=== PATIENT | female | born 1985 | race Caucasian/White ===

== ENCOUNTER 2020-04-07 09:03 | Outpatient (REF) | payer OTHER, SELFPAY ==
[2020-04-07 11:08] LABS: MANUAL DIFF FLAG NO
[2020-04-07 11:21] LABS: Basophils Percent Auto 0.3 % (0-2); Eosinophils Absolute Auto 0.1 X10*3/uL (0.0-0.4); Eosinophils Percent Auto 1.2 % (0-4); Hemoglobin 15.2 g/dl (12.0-16.0); Imm Gran Abs Auto 0.03 X10*3/uL (0.00-0.03); Imm Gran Pct Auto 0.4 % (0.0-0.4); Lymphocytes Absolute Auto 1.8 X10*3/uL (1.2-4.9); Lymphocytes Percent Auto 23.8 % (20-40); Mean Corpuscular HGB Conc 33.8 g/dl (31.0-35.0); Mean Corpuscular Hemoglobin 33.3 pg (27.0-33.0); Mean Corpuscular Volume 98.7 fL (80-98); Monocytes Absolute Auto 0.6 X10*3/uL (0.1-1.2); Monocytes Percent Auto 7.6 % (2-11); Neutrophils Absolute Auto 5.1 X10*3/uL (2.0-8.3); Neutrophils Percent Auto 66.7 % (45-73); Platelet Count 291 X10*3/uL (160-400); Red Blood Count 4.56 X10*6/uL (4.20-5.50); White Blood Count 7.7 X10*3/uL (4.8-10.8)
[2020-04-07 11:43] LABS: Anion Gap 11 (12-20); Blood Urea Nitrogen 11 mg/dL (9-16); Calcium 8.6 mg/dL (8.4-10.2); Carbon Dioxide 27 mmol/L (22-29); Chloride 106 mmol/L (96-108); Estimated Glomerular Filt Rate > 60; Glucose Random 101 mg/dL (60-115); Potassium 4.6 mmol/l (3.3-5.1); Sodium 139 mmol/L (135-145)
[2020-04-07 12:07] LABS: TSH reflex Free T4 3.26 mIU/mL (0.32-4.0)
[2020-04-07 12:08] LABS: Estimated Average Glucose 97 mg/dL
[2020-04-08 07:46] LABS: LDL Cholesterol Direct 102 mg/dL (<100)
== END 2020-04-07 09:04 | disposition home or self-care (01) ==
LOC: HO.HMGCLDS 09:03
PROVIDERS: PCP Internal Medicine; Visit Provider Internal Medicine
DX: E66.01 Morbid (severe) obesity due to excess calories (principal); R03.0 Elevated blood-pressure reading, without diagnosis of hypertension; Z76.89 Persons encountering health services in other specified circumstances
CPT/HCPCS: 36415; 80048; 83036; 83721; 84443; 85025

== ENCOUNTER 2022-02-19 01:45 | Emergency (ER) | payer OTHER, SELFPAY ==
[2022-02-19 01:57] VITALS: PULSE 113; RESP 18; TEMP 36.1; O2SAT 96; BMI 35.5
[2022-02-19 02:14] LABS: MANUAL DIFF FLAG NO
[2022-02-19 02:15] LABS: Basophils Percent Auto 0.3 % (0-2); Eosinophils Absolute Auto 0.3 X10*3/uL (0.0-0.4); Eosinophils Percent Auto 3.4 % (0-4); Hematocrit 46.9 % (37.0-47.0); Hemoglobin 16.7 g/dl (12.0-16.0); Imm Gran Abs Auto 0.04 X10*3/uL (0.00-0.03); Imm Gran Pct Auto 0.4 % (0.0-0.4); Lymphocytes Absolute Auto 1.9 X10*3/uL (1.2-4.9); Lymphocytes Percent Auto 21.1 % (20-40); Mean Corpuscular HGB Conc 35.6 g/dl (31.0-35.0); Mean Corpuscular Hemoglobin 36.7 pg (27.0-33.0); Mean Corpuscular Volume 103.1 fL (80.0-98.0); Monocytes Absolute Auto 0.7 X10*3/uL (0.1-1.2); Monocytes Percent Auto 7.2 % (2-11); Neutrophils Absolute Auto 6.1 x10*3/uL (2.0-8.3); Neutrophils Percent Auto 67.6 % (45-73); Platelet Count 238 X10*3/uL (160-400); Red Blood Count 4.55 X10*6/uL (4.20-5.50); Red Cell Distribution Width 12.6 % (11.0-16.0)
--- NOTE | 2022-02-19 02:40 | PC.NURSE ---
Patient placed under a section 12 at this time. She is changed into proper section 12 attire and all belongings secured with security. 1:[address] and this RN provides sitter with a report. Patient's overheard telling patient they're going to try to section you. I won't let them take you. They want to send you to the fifth floor. Security called to speak with patient's and he storms out then attempts to gain entry again, before aggressively driving off in his car (per security reports after they called the police). Patient now seated in stretcher conversing with MD. Patient is calm, cooperative, and understanding as to why she was placed under a section 12.
--- NOTE | 2022-02-19 02:40 | ED.PSYCH ---
HPI - Psych General Chief Complaint: Psychiatric Symptoms Stated Complaint: lac on left arm Time Seen by Provider: 02/19/22 01:58 Source: patient Mode of arrival: ambulatory History of Present Illness HPI Narrative: 37-year-old female presents after an intentional laceration to her left forearm with a knife when she states she had a moment of weakness . She states that Sunday is the anniversary of her dad's passing and that she has recently found out that she has MS. Patient is now stating that she is very embarrassed about what she did. Related Data Home Medications Medication Instructions Recorded Confirmed norethindrone (contraceptive) 0.35 1 tab PO DAILY 02/19/22 02/19/22 mg tablet Allergies Allergy/AdvReac Type Severity Reaction Status Date / Time methylphenidate Allergy Intermediate unable to Verified 04/28/20 08:28 [From Ritalin] tolerate hydrochlorothiazide AdvReac Mild headache Verified 04/28/20 08:28 Review of Systems Review of Systems: Pertinent positives and negatives as stated in HPI 10 point review of systems is otherwise negative. PMFSH Past Medical History Source: nursing notes reviewed Medical History Elevated blood pressure reading Encounter to establish care Hypertension, essential Morbid obesity Tourette syndrome Surgical History No pertinent past surgical history Family History Family History Father No problems noted. Mother Breast cancer Diabetes mellitus Brother No problems noted. Social History Social History Alcohol intake: current Alcohol intake frequency: a few times a week Advance Directives: No Physical Exam Vital Signs: Vital Signs: Last Vital Signs Temp 97.0 F 02/19/22 01:57 Pulse 100 02/19/22 02:46 Resp 17 02/19/22 02:46 BP 136/58 L 02/19/22 02:46 Pulse Ox 100 02/19/22 02:46 O2 Del Method 02/19/22 02:46 BMI result Body Mass Index 35.5 VITAL SIGNS: Reviewed. GENERAL: Well developed, well nourished, in no acute distress. HEAD: Normocephalic/atraumatic EYES: PERRLA, EOMI EARS: Ext canals without abnormality OROPHARYNX: no oral lesions noted, posterior pharynx clear LUNGS: Normal breath sounds. No adventitious sounds or accessory muscle use. SpO2<100> CARDIOVASCULAR: Regular rate and rhythm without noted murmurs ABDOMEN: Soft, non-tender, non-distended with bowel sounds. MUSCULOSKELETAL: No tenderness, deformities, or effusions noted on gross inspection. EXTREMITIES: No cyanosis, clubbing or edema; LUE: There is an approximate 10 cm linear laceration to the left forearm with protrusion of subcutaneous tissue to include fat. SKIN: Inspection of the skin reveals no rashes NEUROLOGIC: Alert and oriented x 4. Strength and sensation to light touch were grossly intact x 4, cranial nerves 2-12 are grossly intact.. PSYCH: normal affect, tearful Course Course Course Narrative: 37-year-old female with history and clinical presentation consistent with first-time suicidal attempt and denies any history depression. Patient states that she regrets what she did. She will be getting a tetanus shot and receiving sutures for the laceration. She is on a one-to-one and the crisis team has been notified. After review of all investigations patient is medically cleared for evaluation by the crisis team. Reevaluation(s) Reevaluation #1: Patient placed in physician observation because the patient needed more time for evaluation by the crisis team. At the time observation was started the patient's vital signs were stable, patient is alert and oriented, neuro: Nonfocal, CV RRR, lungs clear Time: 05:30 [facility] - Psych Lab Data Result diagrams: 02/19/22 02:08 02/19/22 03:20 Labs: Lab Results 02/19/22 02/19/22 Range/Units 02:08 03:20 WBC 9.0 (4.8-10.8) X10*3/uL RBC 4.55 (4.20-5.50) X10*6/uL Hgb 16.7 H (12.0-16.0) g/dl Hct 46.9 (37.0-47.0) % MCV 103.1 H (80.0-98.0) fL MCH 36.7 H (27.0-33.0) pg MCHC 35.6 H (31.0-35.0) g/dl RDW 12.6 (11.0-16.0) % Plt Count 238 (160-400) X10*3/uL MPV 9.0 L (9.4-12.3) fL Immature Gran % (Auto) 0.4 (0.0-0.4) % Neut % (Auto) 67.6 (45-73) % Lymph % (Auto) 21.1 (20-40) % Branch % (Auto) 7.2 (2-11) % Eos % (Auto) 3.4 (0-4) % Baso % (Auto) 0.3 (0-2) % Lymph # (Auto) 1.9 (1.2-4.9) X10*3/uL Branch # (Auto) 0.7 (0.1-1.2) X10*3/uL Eos # (Auto) 0.3 (0.0-0.4) X10*3/uL Baso # (Auto) 0.0 (0.0-0.2) X10*3/uL Abs Immat Gran (auto) 0.04 H (0.00-0.03) X10*3/uL Absolute Neuts (auto) 6.1 (2.0-8.3) x10*3/uL Absolute Nucleated RBC 0.000 (0.0-0.012) X10*3/uL Nucleated RBC % (auto) 0.0 (0.0-0.2) /100WBC Sodium 143 (135-145) mmol/L Potassium 3.6 (3.3-5.1) mmol/L Chloride 106 (96-108) mmol/L Carbon Dioxide 24 (22-29) mmol/L Anion Gap 17 (12-20) BUN 7 L (9-16) mg/dL Creatinine 1.04 (0.5-1.4) mg/dL Estim Creat Clear Calc 89.1 Estimated GFR 60 Random Glucose 103 (60-115) mg/dL Calcium 9.2 D (8.4-10.2) mg/dL Total Bilirubin 0.8 (0.0-1.0) mg/dL AST 87 H (5-31) U/L ALT 103 H (0-31) U/L Alkaline Phosphatase 75 (39-117) U/L Total Protein 7.4 (6.5-8.0) g/dL Albumin 4.1 (3.5-5.0) g/dL Salicylates < 5.0 L (15-30) mg/dL Acetaminophen < 1 (<30) mcg/mL Ethyl Alcohol 141 mg/dL Procedures Laceration Laceration 1: Site: upper extremity Side (If applicable): left Size (cm): 12 Description: linear Depth: simple, single layer Local Anesthetic: lidocaine 1% Amount of anesthesia used (mL): 10 Pre-repair: wound explored, irrigated extensively and deep structures intact Skin layer closed with: nylon Size (cm): 4-0 Number of sutures: 15 Technique: simple, interrupted and horizontal mattress (4/15) Subcutaneous layer closed with: vicryl Size: 5-0 Number of sutures: 3 Discharge Plan Discharge Clinical Impression: Suicide attempt, Depression, Arm laceration Patient Disposition: Still a Patient Prescriptions: No Action norethindrone (contraceptive) 0.35 mg tablet 1 tab PO DAILY
[2022-02-19 02:46] VITALS: BP 136/58; PULSE 100; RESP 17; O2SAT 100
[2022-02-19 03:56] LABS: Acetaminophen LAB < 1 mcg/mL (<30); Alanine Aminotransferase 103 U/L (0-31); Albumin Level 4.1 g/dL (3.5-5.0); Alkaline Phosphatase 75 U/L (39-117); Anion Gap 17 (12-20); Aspartate Amino Transferase 87 U/L (5-31); Bilirubin Total 0.8 mg/dL (0.0-1.0); Blood Urea Nitrogen 7 mg/dL (9-16); Calcium 9.2 mg/dL (8.4-10.2); Carbon Dioxide 24 mmol/L (22-29); Chloride 106 mmol/L (96-108); Creatinine Clr Calc Pharmacy 89.1; Estimated Glomerular Filt Rate 60; Ethanol 141 mg/dL; Glucose Random 103 mg/dL (60-115); Potassium 3.6 mmol/L (3.3-5.1); Salicylate < 5.0 mg/dL (15-30); Sodium 143 mmol/L (135-145); Total Protein 7.4 g/dL (6.5-8.0)
[2022-02-19] MEDS: Diphth,Pertus(ACell),Tet Adult 0.5 ML SYRINGE IM (04:14)
[2022-02-19] MEDS: Lidocaine HCl 1 % MPF 5 ML VIAL 10 ML SUBCUT (04:36)
[2022-02-19 05:51] LABS: COVID-19 Test Negative (Negative); IDNOW Serial# 16C4AD1C
--- NOTE | 2022-02-19 05:52 | PC.NURSE ---
Patient was transferred from main ED per provider's order for possible suicidal attempt by cutting her left forearm, although patient refused but provider sectioned patient, patient has laceration on her left forearm/sutured per report/covered with dressing, patient alert and oriented x 4, [facility] referral completed/confirmed/pending ETA, med rec completed/pending provider's approval, behavior non concerning, will continue to monitor.
[2022-02-19 09:11] VITALS: BP 171/95; PULSE 105; RESP 16; TEMP 36.8; O2SAT 96
--- NOTE | 2022-02-19 09:35 | PC.NURSE ---
pt calm and cooperative at this time. does not know why she cut herself last night; had alot of negative thoughts in her mind, she denies any self harm in the past and is not suicidal at this time. she is receiving PT for her new diagnosis of MS but she does have daily discomfort in both legs.
[2022-02-19] MEDS: Ibuprofen 400 MG TABLET PO (10:55)
[2022-02-19 12:23] LABS: Appearance Urine Cloudy; Color Urine Dark Yellow; Glucose Urine UA Negative (Negative); Leukocyte Esterase Urine Large (3+) (Negative); Nitrite Urine Negative (Negative); Specific Gravity - Urine >= 1.030 (1.005-1.025); UMIC TRIGGER UACC YES; Urine Blood Moderate (2+) (Negative); Urine Ketones 15 mg/dL (Negative); Urine Protein 30 (1+) mg/dL (Neg-Trace)
[2022-02-19 12:27] LABS: UPreg QC Valid YES; Urine Pregnancy NEGATIVE (NEGATIVE)
[2022-02-19 12:37] LABS: Amphetamine Screen Urine Not Detected (Not Detect); Barbiturates, Urine Not Detected (Not Detect); Benzodiazepines Screen Urine Not Detected (Not Detect); Cannabinoid Screen Urine POSITIVE (Not Detect); Cocaine Screen Urine Not Detected (Not Detect); Fentanyl, urine Not Detected (Not Detect); Opiate Screen Urine Not Detected (Not Detect); Phencyclidine Screen Urine Not Detected (Not Detect)
[2022-02-19 12:47] LABS: Bacteria Urine 4+ (None Seen); UACC Culture Trigger YES; WBC Urine >50 /HPF (0-5)
== END 2022-02-19 14:30 | disposition home or self-care (01) ==
PROVIDERS: Emergency Provider Student in an Organized Health Care Education/Training Program
DX: S51.812A Laceration without foreign body of left forearm, initial encounter (principal); S50.812A Abrasion of left forearm, initial encounter; X78.1XXA Intentional self-harm by knife, initial encounter; Y93.9 Activity, unspecified; Y92.9 Unspecified place or not applicable; Y99.9 Unspecified external cause status; Z79.899 Other long term (current) drug therapy; Z20.822 Contact with and (suspected) exposure to COVID-19
CPT/HCPCS: 12004; 36415; 80053; 80143; 80179; 80307; 81001; 81025; 82077; 85025; 87086; 87635; 90471; 90715; 99285

== ENCOUNTER 2022-02-28 14:50 | Emergency (ER) | payer OTHER, SELFPAY ==
--- NOTE | 2022-02-28 14:54 | ED.GENADULT ---
HPI - General Adult General Stated complaint: suture removal Time Seen by Provider: 02/28/22 14:54 Source: patient Mode of arrival: ambulatory Limitations: no limitations History of Present Illness HPI narrative: 37-year-old female presents for suture removal to the left forearm, patient had 15 sutures placed February 19, patient was updated on her tetanus shot. Denies any signs of infection. Denies numbness, tingling. No other concerns at this time. Denies fevers and chills. Related Data Home Medications Medication Instructions Recorded Confirmed norethindrone (contraceptive) 0.35 1 tab PO DAILY 02/19/22 02/19/22 mg tablet Allergies Allergy/AdvReac Type Severity Reaction Status Date / Time methylphenidate Allergy Intermediate unable to Verified 04/28/20 08:28 [From Ritalin] tolerate hydrochlorothiazide AdvReac Mild headache Verified 04/28/20 08:28 Review of Systems Review of Systems: Constitutional : No Fever, No Chills, Cardiovascular : No Chest Pain, No SOB Respiratory : No Dyspnea Gastrointestinal : No abdominal pain Musculoskeletal : No Joint Swelling Skin : No rash, positive skin laceration with sutures in place Neuro : No Weakness, No Numbness Psych : No SI/HI Yes all other systems are reviewed and are negative [facility] Past Medical History Attestation statement: The following information was validated with the patient. Source: old records reviewed and nursing notes reviewed Medical History Elevated blood pressure reading Encounter to establish care Hypertension, essential Morbid obesity Tourette syndrome Surgical History No pertinent past surgical history Family History Family History Father No problems noted. Mother Breast cancer Diabetes mellitus Brother No problems noted. Social History Social History Alcohol intake: current Alcohol intake frequency: a few times a week Physical Exam ED Appearance: Alert.? Oriented X3.? No acute distress.? Head: Normocephalic, atraumatic, no step-offs or deformities Eyes: Pupils equal, round and reactive to light.? CVS: Normal heart rate and rhythm.? Pulses normal.? Respiratory: No respiratory distress.? Breath sounds normal.? Abdomen: Soft and nontender.? Skin: Skin warm and dry.? Normal skin color.? Normal skin turgor.?+10 cm linear laceration to the left forearm with [address] Extremities: No lower extremity edema.? No calf ttp. 5/5 strength to bilateral upper and lower extremities Neuro: Oriented X 3.? No motor deficit.? No sensory deficit. CN 2-12 intact Course Reevaluation(s) Reevaluation #1: Suture successfully removed. Advised patient to follow-up with PCP and return with new or worsening symptoms. Comfortable discharge Time: 14:57 Medical Decision Making MDM Narrative Medical decision making narrative: 1456 37-year-old female presents for suture removal, currently as 15 sutures to her forearm. Physical examination with 15 intact sutures to left forearm Plan at this time is suture removal Medical Records Medical records reviewed: Yes I reviewed the patient's medical records. Lab Data Lab results reviewed: Yes I reviewed the patient's lab results. Critical Care Time Critical Care Time Critical Care Time: No Discharge Plan Discharge Clinical Impression: Encounter for removal of sutures Patient Disposition: Home, Self-Care Instructions: Stitches Removal (ED) Additional Instructions: Take your medications as prescribed. If you were prescribed antibiotics today, it is important that you take your medication to their entirety, do not skip any doses, do not finish them early. Follow-up with your primary care provider this week. Return to the emergency department with new or worsening symptoms. Such as fevers, chills, chest pain, shortness of breath, nausea, vomiting, dizziness, headache, vision changes, lethargy In case of emergency call 911 Prescriptions: No Action norethindrone (contraceptive) 0.35 mg tablet 1 tab PO DAILY Referrals: Adilia Stanton MD [Primary Care Provider] - 2 days
== END 2022-02-28 15:26 | disposition left against medical advice (07) ==
PROVIDERS: Emergency Provider Emergency Medicine; PCP Internal Medicine
DX: Z48.02 Encounter for removal of sutures (principal)

== ENCOUNTER 2024-09-29 15:49 | Outpatient (AMB) | payer OTHER, SELFPAY ==
--- NOTE | 2024-09-29 15:52 | MHC.PC.OV ---
Vital Signs 09/29/24 15:55 Height 5 ft 6 in Weight 424 lb 9.765 oz BMI 68.5 BP 140/100 H Blood Pressure Location Lt brachial Position Sitting Pulse 100 Pulse Source Pulse Oximeter Temp 96.9 F Temp Source Temporal Artery Scan Pulse Oximetry (%) 94 Oxygen Delivery Method Room Air Intake Visit Reasons: Establish care Intake Note: Patient is a new patient here to establish care for HTN, Acute and Chronic Respiratory failure w/out hypoxia, Heart failure, Foot drop (right foot), Solitary pulmonary nodule, GERD, other idiopathic peripheral neuropathy, MELL, Tourette's disorder, Obesity . Transferring care from [facility]. Medical records Have been requested and have not received. Inner Tube Inserter Required: No Bak[employer] Internship: Not Required per policy Accompanied by: Self / Same As Patient Allergies methylphenidate [From Ritalin] Allergy (Intermediate, Verified 09/29/24 16:18) unable to tolerate venlafaxine [From Effexor] Allergy (Intermediate, Verified 09/29/24 16:18) Unknown hydrochlorothiazide Adverse Reaction (Mild, Verified 09/29/24 16:18) headache Medication List - Last Reconciled 09/29/24 by Marleny De La Garza PA-C acetaminophen ER (Tylenol 8 Hour) 650 mg PO Q8H PRN carvedilol 25 mg PO BID folic acid 1 mg PO DAILY furosemide 20 mg PO BID 30 days gabapentin 100 mg PO BID ipratropium-albuterol 0.5 mg-3 mg(2.5 mg base)/3 mL 3 mL inhalation Q6-8H PRN lidocaine 5% 1 patch topical DAILY pantoprazole 40 mg PO DAILY Saccharomyces boulardii (Florastor) 250 mg PO BID Tobacco use date assessed: 09/29/24 Dental Screening Dental Screen Date: 09/29/24 Did you have a dental visit in the last 12 months?: No Did you have a dental problem in the last 6 months where you did not have access to dental care?: No Was dental information given to patient?: Patient declined HPI Establish care HPI Details 39-year-old female coming to the office for the 1st time. Presenting with a history of pneumonia, heart failure, and bilateral foot drop. She required intubation and a medically induced coma last year due to pneumonia. Upon awakening, she developed persistent bilateral foot drop, described as a constant sensation of extremities being asleep, affecting both feet and impacting balance. Initially hospitalized for recurring pneumonia and respiratory rehabilitation, the patient required oxygen therapy and cardiac monitoring. She was discharged to [facility] where she completed respiratory rehab. She has been out of her prescribed medications for 2 weeks. The patient has been experiencing ongoing episodes of swelling due to the discontinuation of diuretics. She has seen an increase in alcohol consumption and anxiety. Although she has been engaged in physical therapy exercises, these issues continue to limit functional capacity requiring wheelchair and walker along with double assist. [facility] Medical History Hypertension, essential Tourette syndrome Encounter to establish care Morbid obesity Elevated blood pressure reading Surgical History No pertinent past surgical history Family History Father Substance use disorder Mother Breast cancer Diabetes mellitus Brother No problems noted. Social History Housing: Apartment Alcohol intake: current Alcohol intake frequency: a few times a week Patient Tobacco Use Status: Never used Tobacco e-Cigarette/Vaping Use: Currently Using Second Hand Smoke Exposure: No service: No Current occupational status: unemployed Cognitive needs: Yes (Wheelchair, walker) Hearing needs: No Vision needs: Yes (Glasses) Questionnaire PHQ-9 Over the last 2 weeks, how often have you been bothered by any of the following problems? 1. Little interest or pleasure in doing things: not at all 2. Feeling down, depressed, or hopeless: several days 3. Trouble falling or staying asleep, or sleeping too much: several days 4. Feeling tired or having little energy: several days 5. Poor appetite or overeating: more than half the days 6. Feeling bad about yourself - or that you are a failure or have let yourself or your family down: more than half the days 7. Trouble concentrating on things, such as reading the newspaper or watching television: not at all 8. Moving or speaking so slowly that other people could have noticed. Or the opposite - being so fidgety or restless that you have been moving around a lot more than usual: not at all 9. Thoughts that you would be better off or of hurting yourself in some way: not at all Total score: 7 Depression Screening Interpretation: Positive Depression Screening Follow-up: New Medication prescribed Depression Screening Done: Yes Source: Developed by Drs. Pablo Quinteros, Marcela Lentz, Solomon Mack and colleagues, with an educational allyson from [employer]. Thrive Questionnaire Date Thrive assessed: 09/29/24 I am a: Patient What is your living situation today?: I have a steady place to live Within the past 12 months, did the food you bought not last and you didn't have the money to get more?: Never true Within the past 12 months, did you worry whether your food would run out before you got money to buy more?: Never true Do you have trouble paying for medicines?: Yes Do you have trouble getting transportation to medical appointments?: Yes Do you have trouble paying your heating and electricity bill?: No Do you have trouble taking care of your child, family member or friend?: No Do you have trouble with day-to-day activities such as bathing, preparing meals, shopping, managing finances, etc.?: Yes Are you currently unemployed and looking for a job?: No Are you interested in more education?: No Please select the resources that you would like help with: Housing/Skilled Nursing, Paying for medicine, Transportation and Daily support Currently or been in a relationship where the following occur: No concerns reported THRIVE Score: 1 AUDIT C Alcohol Use Questionnaire (AUDIT-C) 1. How often do you have a drink containing alcohol?: 4 or more times a week 2. How many drinks containing alcohol do you have on a typical day when you are drinking?: 3 or 4 3. How often do you have six or more drinks on one occasion?: Monthly Total Score: 7 Score Reviewed/Action Taken: Yes JOSE RAMON-7 AMB Questionnaire JOSE RAMON-7 Date JOSE RAMON - 7 assessed: 09/29/24 Feeling nervous, anxious, or on edge: 2 = More than half the days Not being able to stop or control worryin = More than half the days Worrying too much about different things: 2 = More than half the days Trouble relaxin = More than half the days Being so restless that it is hard to sit still: 2 = More than half the days Becoming easily annoyed or irritable: 1 = Several days Feeling afraid as if something awful might happen: 1 = Several days Total JOSE RAMON-7 score (0-4 normal; 5-9 mild; 10-14 moderate; 15-21 severe): 12 Source: Developed by Drs. Pablo Quinteros, Marcela Lentz, Solomon Mack and colleagues, with an educational allyson from [employer]. JOSE RAMON-7 Assessment Billing JOSE RAMON-7 Assessment Tool: JOSE RAMON-7 Assessment 70029 Review of Systems Const Denies body aches, Denies chills, Denies fever(s), Denies headache(s) and Denies poor appetite Eyes Reports no additional complaints ENT Denies dysphagia, Denies dizziness, Denies headache(s) and Denies odynophagia Card Denies chest pain, Denies lightheadedness, Denies dyspnea and Reports dyspnea on exertion Resp Denies cough, Denies dyspnea and Reports dyspnea on exertion GI Denies abdominal pain, Denies dysphagia, Denies nausea, Denies odynophagia and Denies vomiting Reports no additional complaints Musc Reports abnormal gait and Reports tingling (hugo feet R > L) Skin/Breast Reports system reviewed and no additional complaints, except as documented Neuro Reports abnormal gait, Denies dizziness, Denies headache(s) and Reports tingling (hugo feet R > L) Psych Reports no additional complaints Physical exam (Primary Care) Vital Signs: Last Vital Signs Temp 96.9 F 09/29/24 15:55 Pulse 100 09/29/24 15:55 BP 140/100 H 09/29/24 15:55 Pulse Ox 94 09/29/24 15:55 Oxygen Delivery Method Room Air 09/29/24 15:55 BMI result Body Mass Index 68.5 Tobacco/Smoking Status: Tobacco use Status Tobacco use date assessed 09/29/24 09/29/24 15:55 Patient Tobacco Use Status Never used Tobacco 09/29/24 16:09 e-Cigarette/Vaping Use Currently Using 09/29/24 16:13 PHQ-9: PHQ-9 Score PHQ-9: Total score 7 09/30/24 08:02 Depression Screening Interpretation: Positive Depression Screening Follow-up: New Medication prescribed Thrive Assessment: Date of Thrive Assessment Date Thrive assessed 09/29/24 09/29/24 15:55 Currently or been in a relationship where the following occur: No concerns reported Const General: cooperative, healthy appearing, comfortable and no acute distress Orientation/consciousness: patient oriented x3 HENMT Head: Yes normocephalic Ears: hearing grossly normal bilaterally General nose exam: Normal external nose present Eyes General: appearance normal, both eyes and all related structures Conjunctivae: conjunctivae normal Neck Neck: Yes full ROM and Yes no lymphadenopathy Resp Effort & Inspection: normal respiratory effort Auscultation: clear to auscultation bilaterally, no crackles, no rales, no rhonchi and no wheezes Cardio Rate: regular rate Rhythm: regular rhythm Skin General skin exam: no rashes or lesions noted Neuro General: patient oriented x3 Gait exam (Neuro): Normal gait present Extrem Other: No calf tenderness, redness or warmth General: Yes normal to inspection, Yes full ROM and Yes edema (hugo 1+ ) Psych Affect: normal affect Attitude: cooperative Insight: Good insight present (Psych) Judgement: Good judgement present (Psych) Coding Level of Care Code New Pt Level 4 (47063) Diagnoses Hypertension, essential I10 Tourette syndrome F95.2 Obstructive sleep apnea G47.33 Solitary pulmonary nodule R91.1 GERD (gastroesophageal reflux disease) K21.9 Heart failure I50.9 Respiratory failure J96.90 Foot drop M21.379 Anxiety F41.9 Depression F32.A Morbid obesity with BMI of 60.0-69.9, adult E66.01; Z68.44 Neuropathy G62.9 Alcohol use disorder F10.90 Additional Codes JOSE RAMON-7 Assessment Billing - JOSE RAMON-7 Assessment Tool: JOSE RAMON-7 Assessment 42598 ([id number]) Assessment & Plan Assessment & Plan (1) Hypertension, essential: Code(s): I10 - Essential (primary) hypertension Category: Medical Plan: Continue on current blood pressure medication. Avoid salt intake and encourage healthy diet and regular exercise. Blood pressure not well controlled today patient has been without her medications for over 1 week and to restart on blood pressure medications and follow up in 4 weeks. (2) Tourette syndrome: Code(s): F95.2 - Tourette's disorder Category: Medical Plan: Patient was previously referred to Urology but did not have appointment. Referral was placed today. (3) Obstructive sleep apnea: Comment: BiPAP Code(s): G47.33 - Obstructive sleep apnea (adult) (pediatric) Category: Medical Plan: Patient has been using BiPAP since discharge from the hospital and finds this beneficial. Referral was placed to sleep medicine today. (4) Solitary pulmonary nodule: Code(s): R91.1 - Solitary pulmonary nodule Category: Medical Plan: Patient was diagnosis solitary pulmonary nodule while admitted at the hospital. Awaiting hospital records at this time to determine if further image or follow up as needed. Patient was not informed of pulmonary nodule at the time of her admission. Can consider referral to pulmonology (5) GERD (gastroesophageal reflux disease): Code(s): K21.9 - Gastro-esophageal reflux disease without esophagitis Category: Medical Plan: Avoid trigger foods such as citrus, tomato products, soda, caffeine, spicy foods and other foods that may be irritating to your stomach. Avoid laying flat 3-4 hours after eating and elevate the head of the bed 30 degrees to prevent acid from moving into the esophagus. Continue on pantoprazole (6) Heart failure: Code(s): I50.9 - Heart failure, unspecified Category: Medical Plan: Patient was diagnosed with heart failure while admitted. Echocardiogram was obtained while admitted. Patient does have increased fluid retention she has been out of her Lasix for over 1 week. Patient is however otherwise asymptomatic and denies any shortness of breath or orthopnea. Plan to obtain BNP and referral was placed to cardiology today. (7) Respiratory failure: Code(s): J96.90 - Respiratory failure, unspecified, unspecified whether with hypoxia or hypercapnia Category: Medical Plan: Patient was diagnosed with respiratory failure requiring oxygen while admitted for treatment of pneumonia. At this time patient is not requiring oxygen and feels her respiratory status has improved since discharge. Can consider referral to pulmonology if this changes. (8) Foot drop: Comment: right Code(s): M21.379 - Foot drop, unspecified foot Category: Medical Plan: Patient having footdrop s/p medical induced coma. Plan to obtain neurology consult today. She is also evaluated while in the hospital and plan to obtain these records. Patient is currently using walker and wheelchair for mobility and requires it to assist for transfers. (9) Anxiety: Code(s): F41.9 - Anxiety disorder, unspecified Category: Medical Plan: Patient having worsening anxiety and depression since discharge from the hospital. It seems most of her anxiety and depression is stemming from her current medical conditions. I can place a referral for therapy and patient is desiring medical management. Plan to start on Zoloft 25 mg daily and follow up in 4 weeks. Discussed side effects of this medication advised patient to reach out if she develops any symptoms. (10) Depression: Code(s): F32.A - Depression, unspecified Category: Medical Plan: See above (11) Morbid obesity with BMI of 60.0-69.9, adult: Code(s): E66.01 - Morbid (severe) obesity due to excess calories; Z68.44 - Body mass index [BMI] 60.0-69.9, adult Category: Medical Plan: Healthy diet and regular exercise is encouraged. Patient has limited mobility due to underlying neurological conditions and has issues with motivation due to depression. Plan to focus on other comorbidities at this time but patient is encouraged to activity as tolerated. (12) Neuropathy: Code(s): G62.9 - Polyneuropathy, unspecified Category: Medical Plan: Patient complaining of neuropathic pain she is currently on gabapentin and finds this beneficial. She has been without the gabapentin for over 1 week and states symptoms have been worsening. Referral was also placed to neurology today for footdrop this may also be addressed. (13) Alcohol use disorder: Code(s): F10.90 - Alcohol use, unspecified, uncomplicated Category: Medical Plan: Patient encouraged to abstain from the use of alcohol especially while using her antidepressant. Referral was placed to [facility] today as well. Plan This note was constructed using voice recognition software. While every effort has been made to ensure accuracy and wheel alignment technician, still areas may have been included sometimes these areas may affect the content or meeting of the given symptoms. Total time spent caring for the patient today was 30 minutes. This includes time spent before the visit reviewing the chart, time spent during the visit, and time spent after the visit and documentation. Patient was informed and verbally consented to the use of an ambient scribe for clinic note documentation during this visit. Orders: Orders Comprehensive Met. Panel 09/29/24 Z00.00 - Encounter for general adult medical examination without abnormal findings Complete Blood Count Auto Diff 09/29/24 Z00.00 - Encounter for general adult medical examination without abnormal findings Lipid Panel 09/29/24 Z13.220 - Encounter for screening for lipoid disorders Vitamin B12 and Folate 09/29/24 Z00.00 - Encounter for general adult medical examination without abnormal findings TSH reflex Free T4 09/29/24 Z00.00 - Encounter for general adult medical examination without abnormal findings Free T4 (Free Thyroxine) 09/29/24 Z00.00 - Encounter for general adult medical examination without abnormal findings Vitamin D 25-OH Total 09/29/24 Z00.00 - Encounter for general adult medical examination without abnormal findings B Type Natriuretic Peptide 09/29/24 I50.9 - Heart failure, unspecified Referrals Cardiology Referral I50.9 - Heart failure, unspecified Addiction Medicine Referral F10.90 - Alcohol use, unspecified, uncomplicated Counseling Referral F10.90 - Alcohol use, unspecified, uncomplicated, F32.A - Depression, unspecified, F41.9 - Anxiety disorder, unspecified Neurology Referral F95.2 - Tourette's disorder, G47.33 - Obstructive sleep apnea (adult) (pediatric), G62.9 - Polyneuropathy, unspecified, M21.379 - Foot drop, unspecified foot Medications: New furosemide 20 mg PO BID 30 days 60 tabs 1RF Saccharomyces boulardii (Florastor) 250 mg PO BID 60 caps 0RF folic acid 1 mg PO DAILY 90 tabs 0RF gabapentin 100 mg PO BID 60 caps 1RF carvedilol must administer with a meal/food 25 mg PO BID 60 tabs 2RF acetaminophen ER (Tylenol 8 Hour) 650 mg PO Q8H PRN 30 tabs 0RF pain ipratropium-albuterol 0.5 mg-3 mg(2.5 mg base)/3 mL 3 mL inhalation Q6-8H PRN 90 mL 0RF wheezing lidocaine 5% leave on most painful area for up to 12 hrs 1 patch topical DAILY 15 ea 0RF pantoprazole 40 mg PO DAILY 90 tabs 0RF sertraline 25 mg PO DAILY 30 tabs 1RF
--- OUTSIDE RECORDS SUMMARY | 2024-09-29 15:53 | XMS_ITS | Clinical Summary ---
Author Organization [facility] it Address [address] [place] [address] Care Team Providers Care Vp Outcomes Name Role Phone Unavailable Primary Care Provider Unavailabl e Social History Tobacco Use Types Packs/Day Years Used Date Smoking Tobacco: Never Assessed Comments Unknown Sex and Gender Information Value Date Recorded Sex Assigned at Not on file Legal Sex Female 2:40 PM EST Gender Identity Not on file Sexual Orientation Not on file Plan of Treatment Health Maintenance Due Date Last Done Comments DTaP,Tdap,and Td Vaccines (1 - Tdap) 2005 Hepatitis B Vaccines (1 of 3 - 19+ 3-dose series) 2005 Cervical Cancer Screening: P ap Smear 2007 COVID-19 Vaccine (2023-2 5 season) 2024 Influenza Vaccine (Season Ended) 2025 HIB Vaccines Aged Out No longer eligi ble based on patient's age to complete this topic HPV Vaccines Aged Out No longer eligi ble based on patient's age to complete this topic Hepatitis A Vaccines Aged Out No long er eligible based on patient's age to complete this topic IPV Vaccines Aged Out No longer eligi ble based on patient's age to complete this topic MMR Vaccines Aged Out No longer eligi ble based on patient's age to complete this topic Meningococcal ACWY Vaccine Aged Out N o longer eligible based on patient's age to complete this topic Meningococcal B Vaccine Aged Out No l onger eligible based on patient's age to complete this topic Pneumococcal Vaccine: Pediat rics (0 to 5 Years) and At-Risk Patients (6 to 64 Years) Aged Out No longer eligible b ased on patient's age to complete this topic RSV Immunization Patients Un mario 20 months Aged Out No longer eligible b ased on patient's age to complete this topic Varicella Vaccines Aged Out No longer eligible based on patient's age to complete this topic
[2024-09-29 15:55] VITALS: BP 140/100; PULSE 100; TEMP 36.1; O2SAT 94; BMI 68.5
== END 2024-09-29 17:22 | disposition home or self-care (01) ==
LOC: HO.HMCH 15:50
DX: I11.0 Hypertensive heart disease with heart failure (principal); I50.9 Heart failure, unspecified; E66.01 Morbid (severe) obesity due to excess calories; Z68.44 Body mass index [BMI] 60.0-69.9, adult; J96.90 Respiratory failure, unspecified, unspecified whether with hypoxia or hypercapnia; F95.2 Tourette's disorder; G47.33 Obstructive sleep apnea (adult) (pediatric); R91.1 Solitary pulmonary nodule; K21.9 Gastro-esophageal reflux disease without esophagitis; M21.379 Foot drop, unspecified foot; F41.9 Anxiety disorder, unspecified; F32.A Depression, unspecified; G62.9 Polyneuropathy, unspecified; F10.90 Alcohol use, unspecified, uncomplicated

== ENCOUNTER → 2024-09-29 15:49 | Outpatient (BNVA) | payer OTHER, SELFPAY | DX: I11.0 Hypertensive heart disease with heart failure (principal); J96.20 Acute and chronic respiratory failure, unspecified whether with hypoxia or hypercapnia; I50.9 Heart failure, unspecified; M21.371 Foot drop, right foot; M21.372 Foot drop, left foot; R91.1 Solitary pulmonary nodule; K21.9 Gastro-esophageal reflux disease without esophagitis; G60.9 Hereditary and idiopathic neuropathy, unspecified; G47.33 Obstructive sleep apnea (adult) (pediatric); F95.2 Tourette's disorder; E66.01 Morbid (severe) obesity due to excess calories; F41.9 Anxiety disorder, unspecified; F32.A Depression, unspecified; F10.90 Alcohol use, unspecified, uncomplicated; Z68.44 Body mass index [BMI] 60.0-69.9, adult | CPT/HCPCS: 96127; 99202 ==

== ENCOUNTER 2024-11-10 10:57 | Outpatient (AMB) | payer OTHER, SELFPAY ==
--- NOTE | 2024-11-10 10:58 | MHC.PC.OV ---
Intake Visit Reasons: f/u HTN and depression Clearance Center Manager Required: No Metal Handler: Not Required per policy Accompanied by: Self / Same As Patient Allergies methylphenidate (From Ritalin) Allergy (Intermediate, Verified 11/10/24 10:59) unable to tolerate venlafaxine (From Effexor) Allergy (Intermediate, Verified 11/10/24 10:59) Unknown hydrochlorothiazide Adverse Reaction (Mild, Verified 11/10/24 10:59) headache Tobacco use date assessed: 09/29/24 Dental Screening Dental Screen Date: 09/29/24 HPI f/u HTN and depression HPI Details 39-year-old female with past medical history of morbid obesity, Tourette syndrome, hypertension, obstructive sleep apnea, GERD, heart failure, respiratory failure, depression, anxiety, alcohol use disorder and asthma last seen 09/2024 presenting via telehealth for follow up. Presenting with a head cold which has resolved over the last several days. She does continue to have sneezing and occasional head congestion but respiratory symptoms have largely resolved. Reports improvement in depression symptoms with sertraline, but anxiety persists. Reduced alcohol consumption from five days a week to once or twice a week. Experiences nightmares, possibly related to alcohol cessation, not sertraline. Referred to an addiction medicine clinic but did not attend as she managed to reduce alcohol intake independently. Has hypertension and has not been monitoring blood pressure at home. Back on Lasix, which has reduced peripheral edema. [facility] Medical History Hypertension, essential Tourette syndrome Encounter to establish care Morbid obesity Elevated blood pressure reading Surgical History No pertinent past surgical history Family History Father Substance use disorder Mother Breast cancer Diabetes mellitus Brother No problems noted. Social History (Updated 11/10/24 @ 11:02 by ALFREDO Costa) Housing: Apartment Alcohol intake: current Alcohol intake frequency: a few times a week Patient Tobacco Use Status: Never used Tobacco e-Cigarette/Vaping Use: Former Use Second Hand Smoke Exposure: No service: No Current occupational status: unemployed Cognitive needs: Yes (Wheelchair, walker) Hearing needs: No Vision needs: Yes (Glasses) Questionnaire Thrive Questionnaire Date Thrive assessed: 09/29/24 I am a: Patient What is your living situation today?: I have a steady place to live Within the past 12 months, did the food you bought not last and you didn't have the money to get more?: Never true Within the past 12 months, did you worry whether your food would run out before you got money to buy more?: Never true Do you have trouble paying for medicines?: Yes Do you have trouble getting transportation to medical appointments?: Yes Do you have trouble paying your heating and electricity bill?: No Do you have trouble taking care of your child, family member or friend?: No Do you have trouble with day-to-day activities such as bathing, preparing meals, shopping, managing finances, etc.?: Yes Are you currently unemployed and looking for a job?: No Are you interested in more education?: No Currently or been in a relationship where the following occur: No concerns reported THRIVE Score: 1 JOSE RAMON-7 AMB Questionnaire JOSE RAMON-7 Date JOSE RAMON - 7 assessed: 11/10/24 Feeling nervous, anxious, or on edge: 2 = More than half the days Not being able to stop or control worryin = Several days Worrying too much about different things: 1 = Several days Trouble relaxin = Several days Being so restless that it is hard to sit still: 0 = Not at all Becoming easily annoyed or irritable: 0 = Not at all Feeling afraid as if something awful might happen: 0 = Not at all Total JOSE RAMON-7 score (0-4 normal; 5-9 mild; 10-14 moderate; 15-21 severe): 5 Source: Developed by Drs. Pablo Quinteros, Marcela Lentz, Solomon Mack and colleagues, with an educational allyson from [employer]. Review of Systems Const Denies body aches, Denies chills, Denies fever(s), Denies headache(s) and Denies poor appetite Eyes Reports no additional complaints ENT Denies dizziness and Denies headache(s) Card Denies chest pain and Denies dyspnea Resp Denies dyspnea GI Denies abdominal pain, Denies nausea and Denies vomiting Skin/Breast Reports system reviewed and no additional complaints, except as documented Neuro Denies dizziness and Denies headache(s) Psych Reports no additional complaints Physical exam (Primary Care) Vital Signs: vital signs and physical exam not performed due to nature of telehealth visit. Tobacco/Smoking Status: Tobacco use Status Tobacco use date assessed 09/29/24 11/10/24 11:01 Patient Tobacco Use Status Never used Tobacco 11/10/24 11:02 e-Cigarette/Vaping Use Former Use 11/10/24 11:03 Thrive Assessment: Date of Thrive Assessment Date Thrive assessed 09/29/24 11/10/24 11:01 Currently or been in a relationship where the following occur: No concerns reported Telehealth Telehealth Telehealth Platform: [employer] Location of provider rendering services: practice address Location of patient: address on file Patient Identification confirmed using: Name, : Yes Telehealth method: video Patient verbally consented to treatment: Yes Patient verbally consented to billing insurance company: Yes Patient informed of any privacy concerns related to visit: Yes Coding Level of Care Code Tele Est Pt Level 3 (35890) Diagnoses Hypertension, essential I10 Obstructive sleep apnea G47.33 Heart failure I50.9 Anxiety F41.9 Depression F32.A Morbid obesity with BMI of 60.0-69.9, adult E66.01; Z68.44 Alcohol use disorder F10.90 Assessment & Plan Assessment & Plan (1) Hypertension, essential: Code(s): I10 - Essential (primary) hypertension Category: Medical Plan: Continue on current blood pressure medication. Avoid salt intake and encourage healthy diet and regular exercise. Blood pressure not well controlled at last visit and she was out of the medication for several weeks. She will obtain BP cuff and monitor at home. She will also r/s her office visit. (2) Obstructive sleep apnea: Comment: BiPAP Code(s): G47.33 - Obstructive sleep apnea (adult) (pediatric) Category: Medical Plan: Patient has been using BiPAP since discharge from the hospital and finds this beneficial. Referral was placed to sleep medicine at last visit. Appointment in January. (3) Heart failure: Code(s): I50.9 - Heart failure, unspecified Category: Medical Plan: Patient was diagnosed with heart failure while admitted. She is back on lasix and swelling has reportedly gone down. No orthopnea. (4) Anxiety: Code(s): F41.9 - Anxiety disorder, unspecified Category: Medical Plan: Patient having worsening anxiety and depression since discharge from the hospital. She was started on sertraline 25 mg and found this beneficial. She would like to increase to 50 mg at today's visit. She does mentioned having nightmares about 1 month into the prescription however I discussed this is likely due to the decrease in alcohol consumption. If symptoms worsen with increased dose of sertraline to reach out to the office. (5) Depression: Code(s): F32.A - Depression, unspecified Category: Medical Plan: See above (6) Morbid obesity with BMI of 60.0-69.9, adult: Code(s): E66.01 - Morbid (severe) obesity due to excess calories; Z68.44 - Body mass index [BMI] 60.0-69.9, adult Category: Medical Plan: Healthy diet and regular exercise is encouraged. Patient has limited mobility due to underlying neurological conditions and has issues with motivation due to depression. Plan to focus on other comorbidities at this time but patient is encouraged to activity as tolerated. (7) Alcohol use disorder: Code(s): F10.90 - Alcohol use, unspecified, uncomplicated Category: Medical Plan: Patient encouraged to abstain from the use of alcohol especially while using her antidepressant. I did recommend the comprehensive Care Clinic as well. Plan The patient will continue with sertraline, with an increase in dosage to 50 mg to better manage anxiety symptoms. She is advised to monitor her blood pressure at home daily and report any readings above 140/90 mmHg. A prescription for a blood pressure cuff has been sent to a local medical supply store for her convenience. The patient is encouraged to continue reducing alcohol intake and consider follow-up with the addiction medicine clinic if needed. She is scheduled for follow-up appointments with cardiology and neurology in the coming months. Reminded patient about blood work This note was constructed using voice recognition software. While every effort has been made to ensure accuracy and airline transport pilot, still areas may have been included sometimes these areas may affect the content or meeting of the given symptoms. Total time spent caring for the patient today was 20 minutes. This includes time spent before the visit reviewing the chart, time spent during the visit, and time spent after the visit and documentation. Patient was informed and verbally consented to the use of an ambient scribe for clinic note documentation during this visit. Medications: New sertraline 50 mg PO DAILY 90 tabs 0RF blood pressure kit-extra large As directed 1 ea 0RF I10 - Essential (primary) hypertension Refilled lidocaine 5% leave on most painful area for up to 12 hrs 1 patch topical DAILY 15 ea 0RF gabapentin 100 mg PO BID 60 caps 1RF Saccharomyces boulardii (Florastor) 250 mg PO BID 60 caps 0RF
--- OUTSIDE RECORDS SUMMARY | 2024-11-10 12:28 | XMS_ITS | Clinical Summary ---
Author Organization [facility] it Address [address] [place] [address] Care Team Providers Care Irrigation Teacher Name Role Phone Unavailable Primary Care Provider [...]
== END 2024-11-10 12:23 | disposition home or self-care (01) ==
LOC: HO.HMCH 10:57
DX: I10 Essential (primary) hypertension (principal); G47.33 Obstructive sleep apnea (adult) (pediatric); I50.9 Heart failure, unspecified; F41.9 Anxiety disorder, unspecified; F32.A Depression, unspecified; E66.01 Morbid (severe) obesity due to excess calories; Z68.44 Body mass index [BMI] 60.0-69.9, adult; F10.90 Alcohol use, unspecified, uncomplicated

== ENCOUNTER → 2024-11-10 10:57 | Outpatient (BNVA) | payer OTHER, SELFPAY | DX: Z13.89 Encounter for screening for other disorder (principal) ==

== ENCOUNTER 2024-12-22 13:47 | Outpatient (AMB) | payer OTHER, SELFPAY ==
--- NOTE | 2024-12-22 13:49 | MHC.PC.OV ---
Intake Visit Reasons: f/u bp Allergies methylphenidate (From Ritalin) Allergy (Intermediate, Verified 12/22/24 14:12) unable to tolerate venlafaxine (From Effexor) Allergy (Intermediate, Verified 12/22/24 14:12) Unknown hydrochlorothiazide Adverse Reaction (Mild, Verified 12/22/24 14:12) headache Medication List - Last Reconciled 12/22/24 by Marleny De La Garza PA-C acetaminophen ER (Tylenol 8 Hour) 650 mg PO Q8H PRN blood pressure kit-extra large As directed carvedilol 25 mg PO BID folic acid 1 mg PO DAILY furosemide 20 mg PO BID 30 days gabapentin 100 mg PO BID ipratropium-albuterol 0.5 mg-3 mg(2.5 mg base)/3 mL 3 mL inhalation Q6-8H PRN lidocaine 5% 1 patch topical DAILY [Nebulizer As directed] pantoprazole 40 mg PO DAILY Saccharomyces boulardii (Florastor) 250 mg PO BID sertraline 50 mg PO DAILY Tobacco use date assessed: 09/29/24 Dental Screening Dental Screen Date: 09/29/24 HPI f/u bp HPI Details 39-year-old female with past medical history of morbid obesity, Tourette syndrome, hypertension, obstructive sleep apnea, GERD, heart failure, respiratory failure, depression, anxiety, alcohol use disorder and asthma last seen 10/2024 presenting via telehealth for follow up. Patient tells us today she continues to drink alcohol but has cut back significantly. She continues to decline comprehensive Care Clinic as she does not feel it be helpful at this time and she is not interested in quitting completely. She does mentioned persistent pain from the neuropathy and she is anxious to get to her Neurology appointment. She feels her anxiety and depression has significantly improved since being on the sertraline and feels good on the 50 mg and does not want to increase the dose at this time. No other acute concerns today PENDING SALE TO [facility] Medical History Hypertension, essential Tourette syndrome Encounter to establish care Morbid obesity Elevated blood pressure reading Surgical History No pertinent past surgical history Family History Father Substance use disorder Mother Breast cancer Diabetes mellitus Brother No problems noted. Social History Housing: Apartment Alcohol intake: current Alcohol intake frequency: a few times a week Patient Tobacco Use Status: Never used Tobacco e-Cigarette/Vaping Use: Former Use Second Hand Smoke Exposure: No service: No Current occupational status: unemployed Cognitive needs: Yes (Wheelchair, walker) Hearing needs: No Vision needs: Yes (Glasses) Questionnaire Thrive Questionnaire Date Thrive assessed: 09/29/24 JOSE RAMON-7 AMB Questionnaire JOSE RAMON-7 Date JOSE RAMON - 7 assessed: 11/10/24 Source: Developed by Drs. Pablo Quinteros, Marcela Lentz, Solomon Mack and colleagues, with an educational allyson from [employer]. Review of Systems Const Denies body aches, Denies chills, Denies fever(s), Denies headache(s) and Denies poor appetite Eyes Reports no additional complaints ENT Denies dizziness and Denies headache(s) Card Details: Denies orthopnea Denies chest pain, Denies syncope, Denies edema, Denies lightheadedness and Denies dyspnea Resp Denies cough and Denies dyspnea GI Denies abdominal pain, Denies nausea and Denies vomiting Reports no additional complaints Musc Reports as per HPI and Denies abnormal gait Skin/Breast Reports system reviewed and no additional complaints, except as documented Neuro Denies abnormal gait, Denies dizziness, Denies syncope and Denies headache(s) Psych Reports no additional complaints Physical exam (Primary Care) Vital Signs: Vital signs and physical exam not performed due to nature of telehealth visit Tobacco/Smoking Status: Tobacco use Status Tobacco use date assessed 09/29/24 12/22/24 13:51 Patient Tobacco Use Status Never used Tobacco 12/22/24 13:51 e-Cigarette/Vaping Use Former Use 12/22/24 13:51 Thrive Assessment: Date of Thrive Assessment Date Thrive assessed 09/29/24 12/22/24 13:51 Telehealth Telehealth Telehealth Platform: Telephone Location of provider rendering services: practice address Location of patient: address on file Patient Identification confirmed using: Name, : Yes Telehealth method: video Patient verbally consented to treatment: Yes Patient verbally consented to billing insurance company: Yes Patient informed of any privacy concerns related to visit: Yes Coding Level of Care Code Tele Est Pt Level 3 (07981) Diagnoses Hypertension, essential I10 Obstructive sleep apnea G47.33 Heart failure I50.9 Anxiety F41.9 Depression F32.A Morbid obesity with BMI of 60.0-69.9, adult E66.01; Z68.44 Alcohol use disorder F10.90 Assessment & Plan Assessment & Plan (1) Hypertension, essential: Code(s): I10 - Essential (primary) hypertension Category: Medical Plan: Continue on current blood pressure medication. Avoid salt intake and encourage healthy diet and regular exercise. She has been monitoring the blood pressure at home with the BP cuff which has been within normal limits in the 110 systolic range and 50-60 diastolic range. Continue on current medication at this time. Reminded patient about blood work (2) Obstructive sleep apnea: Comment: BiPAP Code(s): G47.33 - Obstructive sleep apnea (adult) (pediatric) Category: Medical Plan: Patient has been using BiPAP since discharge from the hospital and finds this beneficial. Referral was placed to sleep medicine at last visit. Appointment in January. (3) Heart failure: Code(s): I50.9 - Heart failure, unspecified Category: Medical Plan: Patient was diagnosed with heart failure while admitted. She is back on lasix and swelling has reportedly gone down. No orthopnea. Reminded patient about blood work (4) Anxiety: Code(s): F41.9 - Anxiety disorder, unspecified Category: Medical Plan: She has been on the Sertraline 50 mg and finds it helpful and would like to keep it at that dose for now. (5) Depression: Code(s): F32.A - Depression, unspecified Category: Medical Plan: See above (6) Morbid obesity with BMI of 60.0-69.9, adult: Code(s): E66.01 - Morbid (severe) obesity due to excess calories; Z68.44 - Body mass index [BMI] 60.0-69.9, adult Category: Medical Plan: Healthy diet and regular exercise is encouraged. Patient has limited mobility due to underlying neurological conditions and has issues with motivation due to depression. Plan to focus on other comorbidities at this time but patient is encouraged to activity as tolerated. (7) Alcohol use disorder: Code(s): F10.90 - Alcohol use, unspecified, uncomplicated Category: Medical Plan: Patient encouraged to abstain from the use of alcohol especially while using her antidepressant. She has been cutting back but does continue to drink. Declines referral to [facility] today. Plan This note was constructed using voice recognition software. While every effort has been made to ensure accuracy and inker and opaquer, still areas may have been included sometimes these areas may affect the content or meeting of the given symptoms. Total time spent caring for the patient today was 20 minutes. This includes time spent before the visit reviewing the chart, time spent during the visit, and time spent after the visit and documentation. Medications: Refilled furosemide 20 mg PO BID 60 tabs 1RF 30 days carvedilol must administer with a meal/food 25 mg PO BID 60 tabs 2RF
--- OUTSIDE RECORDS SUMMARY | 2024-12-22 13:58 | XMS_ITS | Clinical Summary ---
Author Organization [facility] ity Address [address] [place] [address] Care Team Providers Care Barrel Washer Name Role Phone Unavailable Primary Care Provider [...] Screening: P ap Smear 2007 COVID-19 Vaccine ( - 2023-2 5 season) 2024 Depression Screening 05/21/2024 Influenza Vaccine (#1) 2025 HIB Vaccines Aged Out No longer [...] 5 Years) and At-Risk Patients (6 to 49 Years) Aged Out No longer eligible b ased on patient's age to complete this topic RSV Immunization Patients Un mario 20 months Aged Out No longer eligible b ased on patient's age to complete this topic Varicella Vaccines Aged Out No longer eligible based on patient's age to complete this topic
== END 2024-12-22 14:42 | disposition home or self-care (01) ==
LOC: HO.HMCH 13:47
DX: I10 Essential (primary) hypertension (principal); I50.9 Heart failure, unspecified; E66.01 Morbid (severe) obesity due to excess calories; Z68.44 Body mass index [BMI] 60.0-69.9, adult; G47.33 Obstructive sleep apnea (adult) (pediatric); F41.9 Anxiety disorder, unspecified; F32.A Depression, unspecified; F10.90 Alcohol use, unspecified, uncomplicated